=== PATIENT | female | born 1930 | race Caucasian/White ===

== ENCOUNTER 2018-01-20 08:11 | Emergency (ER) | payer MEDICARE ==
[~2018-01-20] VITALS: Ht 162.5 cm; Wt 68.0 kg
[~2018-01-20 08:11] MED LIST: ASPIRIN325 M2 PO; COLACE100 MG PO; LISINOPRIL2.5 MG PO; LOPRESSOR25 MG PO; MOTRIN800 MG PO; NORVASC10 MG PO; PANTOPRAZOLE SO40 MG PO
[2018-01-20] MEDS ORDERED: METOPROLOL SUCC25 M2 PO (09:49)
[2018-01-20] MEDS ORDERED: KLOR-CON M2020 ME1 PO (09:49)
[2018-01-20] MEDS ORDERED: FUROSEMIDE40 MG PO (09:49)
[2018-01-20 10:27] LABS: BASO % 0.1 % (0.0-1.0); HEMOGLOBIN 13.1 g/dl (12.0-16.0); LYMPH % 13.1 % (27.0-41.0); MEAN CELL VOLUME 86.1 fl (81.0-99.0); MEAN CORPUSCULAR HGB 28.9 pg (27.0-31.0); MEAN CORPUSCULAR HGB CONC 33.6 g/dl (33.0-37.0); MONO # 0.4 10*3/uL (0.1-1.0); MONO % 5.3 % (3.0-9.0); NEUT # 6.2 10*3/uL (2.3-7.9); NEUT % 81.2 % (47.0-73.0); PLATELET COUNT AUTOMATED 235 10*3/uL (130-400); RED BLOOD COUNT 4.53 10*6/uL (4.10-5.10); RED CELL DISTRI WIDTH 14.3 % (0-14.5); WHITE BLOOD COUNT 7.6 10*3/uL (4.8-10.8)
[2018-01-20 10:30] VITALS: BP 172/82
[2018-01-20 10:36] LABS: ACT PARTIAL THROMBO TIME 23.1 SECONDS (20.8-31.5)
[2018-01-20 10:41] LABS: ALBUMIN 3.8 gm/dl (3.1-4.5); ALKALINE PHOSPHATASE 88 U/L (45-117); BUN 15 mg/dl (7-24); CHLORIDE 105 mmol/L (98-107); CREATININE 1.04 mg/dL (0.55-1.02); POTASSIUM 3.3 mmol/L (3.5-5.1); SGOT/AST 21 IU/L (3-35); SGPT/ALT 13 U/L (12-78); SODIUM 142 mmol/L (136-145); TOTAL PROTEIN 6.7 gm/dL (6.4-8.2)
== END 2018-01-20 11:10 | disposition short-term general hospital (02) ==
LOC: ED 08:11
PROVIDERS: Emergency Medicine
DX: S06.5X0A Traumatic subdural hemorrhage without loss of consciousness, initial encounter (principal); S09.21XA Traumatic rupture of right ear drum, initial encounter; I11.0 Hypertensive heart disease with heart failure; I50.9 Heart failure, unspecified; I25.2 Old myocardial infarction; Z79.899 Other long term (current) drug therapy; Z79.82 Long term (current) use of aspirin; W19.XXXA Unspecified fall, initial encounter; Y93.89 Activity, other specified; Y92.008 Other place in unspecified non-institutional (private) residence as the place of occurrence of the external cause; Y99.9 Unspecified external cause status